=== PATIENT | female | born 1985 | race Caucasian/White ===

== ENCOUNTER → 2020-11-29 14:59 | Outpatient (CLI) | payer OTHER, MEDICAID, SELFPAY ==
--- NOTE | 2020-11-29 15:06 | VDLE_ITS ---
Reason For Study: Rt Calf Pain RIGHT LEFT GSV is normal. GSV is normal. CFV is compressible, spontaneous, phasic, CFV is compressible, spontaneous, phasic, competent and demonstrates normal competent, and demonstrates normal augmentation. augmentation. FV is compressible, spontaneous, phasic, FV is compressible, spontaneous, phasic, competent and demonstrates normal competent and demonstrates normal augmentation. augmentation. POP V is compressible, spontaneous, phasic, POP V is compressible, spontaneous, phasic, competent and demonstrates normal competent and demonstrates normal augmentation. augmentation. T/P Trunk is compressible. T/P Trunk is compressible. PTV is compressible. PTV is compressible. RT PerV is compressible. LT PerV is compressible. Procedure Exam performed in department. A preliminary report was called and/or faxed to [facility]. Interpretation Summary Deep veins of the lower extremities are bilaterally patent and compressible segmentally. There is no evidence of deep vein thrombosis on either side. Valvular competence appears intact within the proximal deep venous systems bilaterally. The great saphenous veins appear bilaterally patent and compressible segmentally. Ordering Physician: Shirlene Becker Referring Physician: Jesse Cabrera Performed By: Nicole Lopez, LUIS CARLOS, RVT
== END ==
PROVIDERS: PCP Internal Medicine; Referring Provider Advanced Practice Midwife; Visit Provider Advanced Practice Midwife
DX: O26.92 Pregnancy related conditions, unspecified, second trimester (principal); M79.661 Pain in right lower leg; Z3A.26 26 weeks gestation of pregnancy
CPT/HCPCS: 93970

== ENCOUNTER → 2020-12-13 09:00 | Outpatient (CLI) | payer OTHER, MEDICAID, SELFPAY | PROVIDERS: PCP Internal Medicine; Referring Provider Obstetrics & Gynecology; Visit Provider Obstetrics & Gynecology | DX: Z03.818 Encounter for observation for suspected exposure to other biological agents ruled out (principal) | CPT/HCPCS: 87635; C9803; U0005; U0003 ==

== ENCOUNTER 2020-12-18 05:05 | Inpatient (IN) | payer OTHER, MEDICAID, SELFPAY ==
[2017-06-15 13:22] VITALS: BMI 39.0
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
[2020-12-18] VITALS (20 sets, daily range): BP systolic 104–140; BP diastolic 53–89; PULSE 67–100; RESP 16–20; TEMP 36–36.6; O2SAT 97–100; BMI 39.4
[2020-12-18] MEDS: Lactated Ringers 1,000 ML 999 ML IV (05:30)
[2020-12-18] MEDS: Acetaminophen 500 MG Tablet 1000 MG PO ×3 (06:01→18:00)
[2020-12-18 06:02] LABS: Absolute Lymphocyte Count 1.61 X10^3/uL (0.83-4.51); Absolute Neutrophil Count 5.1 X10^3/uL (2.0-7.7); Basophil# 0.03 X10^3/uL; Basophil% 0.4 % (0-1); Eosinophil# 0.05 X10^3/uL; Eosinophils% 0.7 % (0-5); Hemoglobin 9.9 g/dL (12.0-15.0); Lymphocyte # 1.61 X10^3/ul (4.0); Lymphocyte % 21.7 % (19-41); Mean Corp Hgb Conc 30.9 g/dL (32-36); Mean Corpuscular Hgb 26.8 pg (27.0-32.0); Mean Corpuscular Volume 86.5 fL (81-99); Mean Platelet Vol. 10.4 fl (6.2-12.0); Monocyte# 0.53 X10^3/uL; Monocyte% 7.1 % (0-10); NRBC Flagged by Analyzer 0 % (0-5); Neutrophil # 5.09 X10^3/uL (2.7-7.7); Neutrophil % 68.6 % (47-70); POSITIVE COUNT YES; Platelet Count 206 K/mm3 (150-450); RBC Distribution Width CV 14.1 % (11.6-14.6); RBC Distribution Width SD 44.1 fl (35.1-43.9); White Blood Count 7.4 K/mm3 (4.4-11.0)
[2020-12-18 06:07] LABS: Differential Indicated SCAN CRITERIA MET
[2020-12-18 06:27] LABS: Differential Comment SCANNED
[2020-12-18] MEDS: Lactated Ringers 1,000 ML 150 ML IV (06:31)
[2020-12-18] MEDS: Sodium Citrate/Citric Acid 30 ML UDC PO (06:59)
[2020-12-18] MEDS: Cefazolin 2 GM in 0.9% Normal Saline 100 ML IV (07:25)
--- NOTE | 2020-12-18 07:50 | FALS_PTH ---
PATIENT: YAMIL GONZALEZ LOC: [facility] U#:[id number] AGE/SX: 35/F ROOM: [facility] RE12/18/[address]: Dr. Poonam Robertson, MDDOB: 1985 BED: 1 DIS: 12/20/2020 SPEC #: [id number] RECD: 12/18/20 08:42 STATUS: SAWYER JUVE #: [id number] PRADIP: 12/18/20 07:[address]: Poonam Robertson DEPT: SURGICAL PATHOLOGY RECD BY: Maggie Gaffney ENTERED: 12/18/20 12:51 SP TYPE: FALL TUBES OTHR DR: Dr. Jesse Cabrera MD Tissues: Fallopian tube Procedures: Surgery Specimen Level II HEADER OPERATION: Tubal ligation PRE-OP DIAGNOSIS: Sterilization TISSUE SUBMITTED: Fallopian tubes MICROSCOPIC DIAGNOSIS Right fallopian tube, salpingectomy: Complete cross-section of fallopian tube with no pathologic change. Left fallopian tube, salpingectomy: Complete cross-section of fallopian tube with no pathologic change. Benign paratubal cyst. AM:kesha 12/19/2020 MICROSCOPIC DESCRIPTION Slides are reviewed. GROSS DESCRIPTION Received in fixative is one container labeled with the patient's name and designated bilateral fallopian tubes, right tube with suture. The specimen consists of bilateral fallopian tubes including fimbrial ends. The right tube measures 6 cm in length and 0.6 cm in diameter and left tube measures 7.5 cm in length and 0.6 cm in diameter. Sections reveal unremarkable cut surfaces. Mobile Service Rv Technician sections are submitted in two cassettes as follows: 1 - right fallopian tube, 2 - left fallopian tube. / SHANNA:kesha 12/18/20 TC:5 [facility]: [id number] x2
--- NOTE | 2020-12-18 08:05 | PCM.OPRPT ---
Delivery Classification: Scheduled Final FLORENCIA: 12/25/20 - start time 37 end time 08 Gestational age: 39 Weeks and 0 Days emergency response officer: Danica Walton Type of Anesthesia:: Spinal Implants Used: none Date of Procedure: 12/18/20 - delivery time 0742 Pre-Operative Diagnosis: elective repeat cs, Breech, Desires sterilization Post-Operative Diagnosis: same Indications for : Repeat Elective , Desires elective sterilization, Breech Description of Procedure: After informed consent was obtained the patient was taken to the operating room she was given spinal anesthesia. sHe was placed in the supine position. She was then prepped and draped in normal sterile fashion. Once spinal anesthesia was found to be adequate skin incision was made with a scalpel in a Pfannenstiel fashion. It was carried down to the underlying layer of the fascia. Fascia was then incised midline with scapel and extended laterally using curved sandoval. 2 straight Pio's were placed in the superior aspect of the fascial edge and the rectus muscles were dissected off sharply. Attention was then turned to the inferior aspect where again the fascial edge was grasped with 2 straight Pio clamps tented up and the rectus muscle dissected off sharply. At this time the rectus muscles were grasped in the midline using 2 Allis clamps and scalpel was used to separate the rectus muscles. Using blunt force the peritoneum was then entered. Metzenbaums were used to take down the rectus muscles inferiorly as well as the peritoneum. At this time the vesicouterine peritoneum was identified. Uterine incision was made in a low transverse fashion with the scalpel and then entered bluntly. Gentle opposing traction was placed to extend the uterine incision. The membranes were ruptured amniotic fluid clear. in breech position- delivered without complications- delayed cord clamping performed- mouth and nose were suctioned and immediate skin to skin performed in OR. The placenta was then removed with gentle traction. The uterus was removed from the intra-abdominal cavity is wrapped in a moist lap. Uterine anomaly appreciated- able to palpate two separate cavities. The uterus was cleared of all clots and debris using a moist lap. Ring clamps were placed on the uterine angles. #1 Vicryl suture was used in a running locked fashion for the first layer. Excellent hemostasis. Tubes and ovaries appear normal. Babcocks placed on the left fallopian tube at this time the LigaSure was used to coagulate ligate along the mesosalpinx. The entire left tube was removed. At this time then the uterus was placed back into abdominal cavity. Next once the uterus was placed back in the abdominal cavity the right tube was grasped with Babcocks and using the LigaSure was coagulated and ligated along the mesosalpinx to remove the entire tube. Uterine incision was evaluated and noted to be of good hemostasis. Great hemostasis was appreciated at this time the uterine incision was again evaluated good hemostasis was appreciated. Marcelino was placed over the mesosalpinx pedicles and the uterine incision. The peritoneum and muscle were grasped with Kellys. This was reapproximated using #2 Vicryl suture in a running fashion. The fascia was then reapproximated using #1 Vicryl in a running fashion. Subcutaneous layer was evaluated and Bovie was used for any small oozing that was noted per #2-0 plain gut suture was then used to reapproximate the subcutaneous layer 4-0 chromic was used to reapproximate the skin in a subcutaneous fashion. Dry sterile dressing was applied. Instrument lap needle count were correct ?2. Anticipated normal postoperative course for this patient. Amniotic Membrane Rupture Type: Spontaneous Amniotic Fluid Description: Clear Placenta Disposition: [facility] Drain: Oak[place] to straight drain Fluids Replaced: 1000 Cord Entanglement: None Cord Vessel Description: 3 Vessels Esitmated Blood Loss (ml): 700 Infant Gender: Male (1 minute): 8 (5 minute): 9 Delayed cord clamping: Yes Antibiotic Given: Ancef 2 grams IV x1 Pt instructed on risks of surgery: Bleeding, Anesthesia Risks, Infection, Permanency, Failure Rate of 1 to 2%, Injury to surrounding structure(s) including bowel and bladder, Availability of other non-permanent control options Complications: None - Admit VTE Documentation VTE Present on Admission: Yes VTE Mechan Device Prophylaxis: SCD's VTE Pharm Prophylaxis ordered?: Yes
[2020-12-18] MEDS: Oxytocin 30 units/NS 500 ml 30 UNITS/500 ML IV.SOLN 167 UNITS IV (08:25)
[2020-12-18] MEDS: Ferrous Sulfate 325 MG Tablet PO ×2 (11:52→18:00)
[2020-12-18] MEDS: 0.9% Saline Lock 10 ML Syringe IV ×4 (11:52→22:28)
[2020-12-18] MEDS: Ondansetron 4 MG/2 ML Vial IV (14:16)
[2020-12-18] MEDS: Ketorolac 30 MG/ML Syringe IV ×2 (15:12→22:28)
[2020-12-18] MEDS: Enoxaparin 40 MG/0.4 ML Syringe SC (19:49)
[2020-12-19 00:08] VITALS: BP 116/56; PULSE 76; RESP 18; TEMP 36.7
[2020-12-19] MEDS: Acetaminophen 500 MG Tablet 1000 MG PO ×4 (00:14→18:03)
[2020-12-19 03:44] VITALS: BP 109/61; PULSE 68; RESP 16; TEMP 36.4
[2020-12-19] MEDS: Ketorolac 30 MG/ML Syringe IV (03:46)
[2020-12-19] MEDS: 0.9% Saline Lock 10 ML Syringe IV (03:46)
[2020-12-19 06:52] LABS: Hematocrit 30.2 % (37-47); Hemoglobin 9.2 g/dL (12.0-15.0); Mean Corp Hgb Conc 30.5 g/dL (32-36); Mean Corpuscular Hgb 26.7 pg (27.0-32.0); Mean Corpuscular Volume 87.8 fL (81-99); Mean Platelet Vol. 9.6 fl (6.2-12.0); Platelet Count 216 K/mm3 (150-450); RBC Distribution Width CV 14.4 % (11.6-14.6); RBC Distribution Width SD 45.7 fl (35.1-43.9); Red Blood Count 3.44 M/mm3 (4.2-5.4); White Blood Count 9.2 K/mm3 (4.4-11.0)
[2020-12-19 07:42] VITALS: BP 108/63; PULSE 70; RESP 16; TEMP 36.1; O2SAT 100
--- NOTE | 2020-12-19 07:54 | PN.OBGYN_ITS ---
Subjective: pt seen at bedside, doing well. pt reports good pain control. lochia mild, voiding w/o difficulty, passing flatus and tolerating regular diet. pt is bottle feeding. - Physical Exam Vitals/I&O's: Vital Signs Temp Pulse Resp BP Pulse Ox 97.0 F L 70 16 108/63 100 12/19/20 07:42 12/19/20 07:42 12/19/20 07:42 12/19/20 07:42 12/19/20 07:42 Oxygen Delivery Method Room Air Weight: 110.767 kg Body Mass Index (BMI) 39.4 Intake and Output for Last 24 Hours 12/17/20 12/18/20 12/19/20 23:59 23:59 23:59 Intake Total 4210.0 / 4210.0 Output Total 700 / 700 420 / 420 Balance 3510.0 / 3510.0 -420 / -420 General: Alert, Oriented x3 Abdomen: Soft, Non-Distended, - - fundus firm, dressing dry- two areas marked but no seepingn past marked edges Laboratory Results 12/19/20 06:40: WBC 9.2, RBC 3.44 L, Hgb 9.2 L, Hct 30.2 L, MCV 87.8, MCH 26.7 L , MCHC 30.5 L, RDW Std Deviation 45.7 H, RDW Coeff of Sandra 14.4, Plt Count 216, MPV 9.6 Current Medications Acetaminophen (Acetaminophen 500 Mg Tablet) 1,000 mg PO Q6 [facility] Last Admin: 12/19/20 06:02 Dose: 1,000 mg Documented by: Bisacodyl (Bisacodyl 10 Mg Suppository) 10 mg RC UD PRN PRN Reason: If no BM Enoxaparin Sodium (Enoxaparin 40 Mg/0.4 Ml Syringe) 40 mg SC DAILY@2000 [facility] Last Admin: 12/18/20 19:49 Dose: 40 mg Documented by: Ferrous Sulfate (Ferrous Sulfate 325 Mg Tablet) 325 mg PO 1200,1700 [facility] Last Admin: 12/18/20 18:00 Dose: 325 mg Documented by: Hydrocortisone (Hydrocortisone 2.5% Crm) 1 applic TOPICAL TID PRN PRN; Protocol PRN Reason: Discomfort Lactated Ringer's () 1,000 mls @ 100 mls/hr IV .Q10H [facility] Last Admin: 12/19/20 00:59 Dose: Not Given Documented by: Ibuprofen (Ibuprofen 600 Mg Tablet) 600 mg PO Q6H [facility] Ketorolac Tromethamine (Ketorolac 30 Mg/Ml Syringe) 30 mg IV Q6H [facility] Stop: 12/19/20 09:01 Last Admin: 12/19/20 03:46 Dose: 30 mg Documented by: Methylergonovine Maleate (Methylergonovine 0.2 Mg/Ml Ampul) 0.2 mg IM X1 PRN PRN Reason: Uterine Atony Ondansetron HCl (Ondansetron 4 Mg/2 Ml Vial) 4 mg IV Q4H PRN PRN PRN Reason: Nausea Last Admin: 12/18/20 14:16 Dose: 4 mg Documented by: Oxycodone HCl (Oxycodone 5 Mg Tablet) 5 - 10 mg PO Q4H PRN PRN PRN Reason: Pain Score 4-10 Prochlorperazine Edisylate (Prochlorperazine 10 Mg/2 Ml Vial) 10 mg IV Q6H PRN PRN PRN Reason: NAUSEA Senna/Docusate Sodium (Senna/Docusate Sodium 1 Tablet) 0 tablet PO DAILY [facility] Last Admin: 12/18/20 11:52 Dose: Not Given Documented by: Simethicone (Simethicone 80 Mg Tablet) 80 mg PO [facility] PRN PRN Reason: Indigestion/stomach pain Sodium Chloride (0.9% Saline Lock 10 Ml Syringe) 5 - 15 ml IV UD PRN PRN Reason: SALINE FLUSH Last Admin: 12/19/20 03:46 Dose: 10 ml Documented by: Medical Necessity - Tobacco Use Smoking Status: Never smoker Assessment/Plan PPD#1, doing well routine care pain mgmt ambulation plan for dc home tomorrow
[2020-12-19] MEDS: Ibuprofen 600 MG Tablet PO ×3 (09:06→21:05)
[2020-12-19] MEDS: Senna/Docusate Sodium 1 Tablet PO (09:07)
[2020-12-19] MEDS: Ferrous Sulfate 325 MG Tablet PO ×2 (11:53→18:03)
[2020-12-19] MEDS: Famotidine 20 MG Tablet PO ×2 (11:53→22:22)
[2020-12-19 13:40] VITALS: BP 120/64; PULSE 77; RESP 14; TEMP 36.9; O2SAT 97
[2020-12-19 14:39] LABS: Pathology Specimen OB SEE PATHOLOGY REPORT
--- NOTE | 2020-12-19 14:54 | NURSING ---
This nurse reviewed the documentation completed by Ho Sifuentes, student nurse. This nurse was also present with the student for all medication administrations.
[2020-12-19 19:44] VITALS: BP 118/65; PULSE 79; RESP 16; TEMP 36.4; O2SAT 97
[2020-12-19] MEDS: Enoxaparin 40 MG/0.4 ML Syringe SC (19:48)
[2020-12-20] MEDS: Acetaminophen 500 MG Tablet 1000 MG PO ×2 (00:34→06:44)
[2020-12-20 02:16] VITALS: BP 110/65; PULSE 67; RESP 16; TEMP 36.7
[2020-12-20] MEDS: Ibuprofen 600 MG Tablet PO ×2 (03:20→08:30)
--- NOTE | 2020-12-20 07:16 | PCM.PN.OB ---
Subjective: Doing well. Pain controlled. She denies lightheadedness, dizziness, chest pain, shortness of breath, leg pain. Lochia normal. Tolerating regular diet without nausea or vomiting. Ambulating and voiding without difficulty. - Physical Exam Vitals/I&O's: Vital Signs Temp Pulse Resp BP Pulse Ox 98.0 F 67 16 110/65 97 12/20/20 02:16 12/20/20 02:16 12/20/20 02:16 12/20/20 02:16 12/19/20 19:44 Oxygen Delivery Method Room Air Weight: 244 lb 3.2 oz Body Mass Index (BMI) 39.4 Intake and Output for Last 24 Hours 12/18/20 12/19/20 12/20/20 23:59 23:59 23:59 Intake Total 4210.0 / 4210.0 Output Total 700 / 700 420 / 420 Balance 3510.0 / 3510.0 -420 / -420 General: Alert, No apparent distress HEENT: Atraumatic Abdomen: Soft, Non Tender, - - Dressing in place Extremities: Edema Skin: No rashes Neurological: Neuro grossly intact Psych/Mental Status: Normal Affect, Appropriate Current Medications Acetaminophen (Acetaminophen 500 Mg Tablet) 1,000 mg PO Q6 [facility] Last Admin: 12/20/20 06:44 Dose: 1,000 mg Documented by: Bisacodyl (Bisacodyl 10 Mg Suppository) 10 mg RC UD PRN PRN Reason: If no BM Enoxaparin Sodium (Enoxaparin 40 Mg/0.4 Ml Syringe) 40 mg SC DAILY@1999 [facility] Last Admin: 12/19/20 19:48 Dose: 40 mg Documented by: Famotidine (Famotidine 20 Mg Tablet) 20 mg PO BID [facility] Last Admin: 12/19/20 22:22 Dose: 20 mg Documented by: Ferrous Sulfate (Ferrous Sulfate 325 Mg Tablet) 325 mg PO 1200,1700 [facility] Last Admin: 12/19/20 18:03 Dose: 325 mg Documented by: Hydrocortisone (Hydrocortisone 2.5% Crm) 1 applic TOPICAL TID PRN PRN; Protocol PRN Reason: Discomfort Ibuprofen (Ibuprofen 600 Mg Tablet) 600 mg PO Q6H [facility] Last Admin: 12/20/20 03:20 Dose: 600 mg Documented by: Methylergonovine Maleate (Methylergonovine 0.2 Mg/Ml Ampul) 0.2 mg IM X1 PRN PRN Reason: Uterine Atony Ondansetron HCl (Ondansetron 4 Mg/2 Ml Vial) 4 mg IV Q4H PRN PRN PRN Reason: Nausea Last Admin: 12/18/20 14:16 Dose: 4 mg Documented by: Oxycodone HCl (Oxycodone 5 Mg Tablet) 5 - 10 mg PO Q4H PRN PRN PRN Reason: Pain Score 4-10 Prochlorperazine Edisylate (Prochlorperazine 10 Mg/2 Ml Vial) 10 mg IV Q6H PRN PRN PRN Reason: NAUSEA Senna/Docusate Sodium (Senna/Docusate Sodium 1 Tablet) 0 tablet PO DAILY [facility] Last Admin: 12/19/20 09:07 Dose: 2 tablet Documented by: Simethicone (Simethicone 80 Mg Tablet) 80 mg PO [facility] PRN PRN Reason: Indigestion/stomach pain Sodium Chloride (0.9% Saline Lock 10 Ml Syringe) 5 - 15 ml IV UD PRN PRN Reason: SALINE FLUSH Last Admin: 12/19/20 03:46 Dose: 10 ml Documented by: Medical Necessity - Tobacco Use Smoking Status: Never smoker Assessment/Plan Patient is postop day 2 from a repeat . Pain controlled. Meeting all milestones to go home. The patient desires to go home. Discharge instructions reviewed.
--- NOTE | 2020-12-20 07:20 | DCINST_ITS ---
Discharge Diet: No Restrictions Discharge Activity: May Not Drive - until you feel strong enough to slam on a car break or turn a steering wheel sharply, May Shower May resume sexual activity in: 6 weeks Ice area for (Minutes): 15 Weight Bearing Status: Weight bearing as tolerated Lifting Restrictions: Nothing heavier than baby Call your doctor if your incision/area has: Sudden Increased Bleeding, Increased Pain/ Swelling, Increased Redness, Foul Smelling Discharge, Swelling at the incision site Call your doctor if you observe: Fever of 101 or Higher, Inability to urinate, Inability to have a bowel movement, Using more than one pad per hour, Shortness of breath, Dizziness, Fainting spells, Swelling in the ankles, Chest pain, Increased palpitations (irregular heartbeat), Calf discomfort, Uncontrolled pain Suture Line Care: Avoid Pulling/Pushing, Avoid Pinching/Bending Remove Dressing in (days):: 2 - remove in shower Cleanse incision/area with: Soap & Water Additional Instructions: If you experience any of the following, contact your healthcare provider. * Bleeding that soaks a pad every hour for 2 hours * Fever 100.4 or higher * Unrelieved incision or abdominal pain * Swelling, redness, discharge or bleeding from your incision or episiotomy site * Your incision begins to separate * Problems urinating (including inability to urinate or burning while urinating). * Visual changes * Severe headache * Flu-like symptoms * Pain or redness in one of both of your breasts * Pain, warmth, tenderness or swelling in your legs, especially the calf area * Frequent nausea and vomiting * Symptoms of depression or anxiety If you experience any of the following, call 911 or go to the nearest Emergency Room. * Chest pain * Problems breathing * Seizure activity * Partial or complete paralysis of a body part, slurred speech, weakness or drooping of the face, or a sudden inability to walk or hold your balance Allergies/Adverse Reactions: Allergies No Known Allergies Allergy (Verified 06/18/17 06:15) Medications to take at Discharge Vits [Prenatabs FA ] 1 tablet PO DAILY 05/20/17 Famotidine [Pepcid] 1 tab PO BID 12/18/20 Docusate Sodium [Colace] 100 mg PO BID PRN PRN #30 cap 12/20/20 Ibuprofen [Motrin] 600 mg PO Q6H PRN PRN #30 tab 12/20/20 The following prescriptions were given: Docusate Sodium [Colace] 100 mg PO BID PRN PRN #30 cap PRN Reason: Constipation Transmission Status: Pending to [facility] Ibuprofen [Motrin] 600 mg PO Q6H PRN PRN #30 tab PRN Reason: Pain Score 6-10 Transmission Status: Pending to [facility] Follow-Up: Call to make an appointment with your doctor for an incision check in 1-2 weeks. You will also need a 6 week post- follow up appointment. Test results from this visit will be discussed in further detail at your follow- up appointment, if applicable. When: 1-2 weeks for incision check. 6 weeks for visit Primary Care Physician: Jesse Cabrera MD [Primary Care Provider] -
[2020-12-20 08:00] VITALS: BP 129/72; PULSE 71; RESP 18; TEMP 36.2; O2SAT 98
[2020-12-20] MEDS: Senna/Docusate Sodium 1 Tablet PO (08:30)
== END 2020-12-20 09:10 | disposition home or self-care (01) | DRG 785 ==
PROVIDERS: Admitting Provider Obstetrics & Gynecology; PCP Internal Medicine; Referring Provider Obstetrics & Gynecology; Visit Provider Obstetrics & Gynecology
PROC: 10D00Z1 Extraction of Products of Conception, Low, Open Approach (ICD-10-PCS; CPT 59514; principal; 2020-12-18 07:15)
DX: O32.1XX0 Maternal care for breech presentation, not applicable or unspecified (principal); O34.219 Maternal care for unspecified type scar from previous cesarean delivery; Z37.0 Single live birth; O99.344 Other mental disorders complicating childbirth; Z30.2 Encounter for sterilization; F41.1 Generalized anxiety disorder; Z3A.39 39 weeks gestation of pregnancy
CPT/HCPCS: 36415; 85025; 85027; 86850; 86900; 86901; 88302; 99218; 99251; J7120; A4216; G0378; G0463; J2405